=== PATIENT | male | born 1965 | race Caucasian/White ===

== ENCOUNTER → 2017-02-24 | Outpatient (CLI) | payer BC ==
[~2017-02-24] MED LIST: NOHOMEMEDS
== END | disposition home or self-care (01) ==
LOC: NUC 07:00
DX: R10.9 Unspecified abdominal pain (principal)
CPT/HCPCS: 78226; A9537

== ENCOUNTER → 2017-12-22 | Outpatient (CLI) | payer BC | END | disposition home or self-care (01) | DX: M17.12 Unilateral primary osteoarthritis, left knee (principal); R26.2 Difficulty in walking, not elsewhere classified; M25.562 Pain in left knee; M25.662 Stiffness of left knee, not elsewhere classified; M62.81 Muscle weakness (generalized); Z74.1 Need for assistance with personal care | CPT/HCPCS: 97161 GP; 97165 GO; 97530 GP; 97535 GO ==